=== PATIENT | female | born 1985 | race Caucasian/White ===

== ENCOUNTER 2017-11-09 09:11 | Day surgery (SDC) | payer OTHER ==
[2017-11-09] MEDS ORDERED: FENTAnyl 50 MCG/ML VIAL (11:06)
[2017-11-09] MEDS ORDERED: MIDAZOLAM 1 MG/ML 2 ML INJ ×3 (11:06)
== END 2017-11-09 12:50 | disposition home or self-care (01) ==
LOC: GIL 09:11
DX: K64.4 Residual hemorrhoidal skin tags (principal)
CPT/HCPCS: 45378; 88305